=== PATIENT | female | born 1945 | race Caucasian/White ===

== ENCOUNTER 2019-01-09 08:38 | Emergency (ER) | payer OTHER ==
[2019-01-09 08:54] VITALS: BP 151/87; PULSE 78; TEMP 98.4; BMI 30.3
--- NOTE | 2019-01-09 09:09 | PDOC ---
History of Present Illness - General Chief Complaint: Injury Stated Complaint: TRIP AND FALL AT WORK INJURED RIGHT UPPER EYE AN Time Seen by Provider: 01/09/19 09:06 - History of Present Illness Initial Comments: 01/09/19 09:11 Chief complaint: Facial injury History of present illness: Patient tripped, fell and struck the right side of her face on the ground. Complains of abrasions above her right eye, and the right side of her upper lip. No loss of consciousness. No lightheadedness, dizziness, vertigo, feelings of faintness,. No other injuries. Review of systems: Denies chest pain, shortness of breath, abdominal pain, nausea, vomiting, diarrhea, visual or focal neurologic symptoms, unsteadiness of gait. Remainder systems reviewed and negative Past medical history: High blood pressure, high cholesterol. No MA, CVA, TIA. Social/family history reviewed and noncontributory Physical exam: Alert and oriented well-developed well-nourished no acute distress cheerful and cooperative Afebrile, vital signs normal PERRLA 4 mm, fundi benign with sharp margins and good central venous pulsations. Conjunctivae and corneas clear. EOMs full without diplopia. Visual ryder intact. Edema of the right upper eyelid with ecchymoses. No orbital deformity or tenderness. 1 cm abrasion above the right eyebrow. Superficial. No penetrating injury or laceration. ENT clear. 5 mm abrasion above the right upper lip, superficial. Abrasion of the inner lip, without penetrating wound. Dentition intact. Neck supple without bruit mass or nodes. No point tenderness or deformity. Full range of motion without pain Chest clear, full breath sounds bilaterally, no rib cage or chest wall deformity or tenderness CV S1 and S2 normal without murmur rub or gallop pulses full and symmetric no JVD or edema no bruits Abdomen soft nontender without mass or organomegaly. No CVAT. No deformity or tenderness of the pelvis or spine Neurological C2 to 12 intact. Strength full and symmetric. No focal sensory or motor deficits. Gait stable and unimpaired. Cerebellar function intact Extremities: No visible or palpable trauma. No CCE Impression: Contusion and abrasion over the right upper orbit. No significant eye injury. Abrasion of the right upper lip. No damage dentition Plan: Tetanus status is up-to-date. Wound scrubbed and dressed with bacitracin. Wound care discussed. Follow-up if other symptoms develop or if sign of infected wounds develops. Fully ambulatory and in no pain or other distress at discharge. Past History - Past Medical History Allergies/Adverse Reactions: Allergies Allergy/AdvReac Type Severity Reaction Status Date / Time Penicillins Allergy Verified 01/09/19 08:40 Home Medications: Ambulatory Orders Amlodipine Besylate 5 mg PO DAILY 12/21/15 Hydrochlorothiazide [Hctz -] 25 mg PO DAILY 12/21/15 Quinapril HCl [Accupril -] 40 mg PO DAILY 12/21/15 Ranitidine [Zantac -] 150 mg PO DAILY 12/21/15 Simvastatin [Zocor -] 20 mg PO HS 12/21/15 COPD: No HTN: Yes Hypercholesterolemia: Yes - Immunization History Immunization Up to Date: Yes (2 YEARS) - Suicide/Smoking/Psychosocial Hx Smoking History: Former smoker Have you smoked in the past 12 months: No If you are a former smoker, when did you quit?: 36 YEARS Information on smoking cessation initiated: No Hx Alcohol Use: No Drug/Substance Use Hx: No Substance Use Type: None *Physical Exam - Vital Signs Last Vital Signs Temp Pulse Resp BP Pulse Ox 98.4 F 78 16 151/87 100 01/09/19 08:40 01/09/19 08:40 01/09/19 08:40 01/09/19 08:40 01/09/19 08:40 *DC/Admit/Observation/Transfer Diagnosis at time of Disposition: Facial abrasion Qualifiers: Encounter type: initial encounter Qualified Code(s): S00.81XA - Abrasion of other part of head, initial encounter - Discharge Dispostion Disposition: HOME Condition at time of disposition: Improved Decision to Admit order: No - Referrals - Patient Instructions Printed Discharge Instructions: DI for Abrasion Additional Instructions: Keep clean and dry. Wound care is discussed. Recheck immediately if sign of infection. - Post Discharge Activity
== END 2019-01-09 09:17 | disposition home or self-care (01) ==
LOC: FER 08:38
DX: S00.81XA Abrasion of other part of head, initial encounter (principal); W01.0XXA Fall on same level from slipping, tripping and stumbling without subsequent striking against object, initial encounter; Y93.89 Activity, other specified; Y92.89 Other specified places as the place of occurrence of the external cause; Z87.891 Personal history of nicotine dependence; E78.00 Pure hypercholesterolemia, unspecified; I10 Essential (primary) hypertension; Y99.0 Civilian activity done for income or pay
CPT/HCPCS: 99282-25